=== PATIENT | female | born 1980 | race Caucasian/White ===

== ENCOUNTER 2019-01-11 08:39 | Inpatient (IN) | payer MEDICAID ==
[~2019-01-11] VITALS: Ht 165.1 cm; Wt 88.6 kg
[~2019-01-11 08:39] MED LIST: FERR27TA; PREN1TAB49
[2019-01-11 08:59] VITALS: Ht 165.1 cm; Wt 88.6 kg
[2019-01-11 09:00] VITALS: BP 125/83
[2019-01-11] MEDS ORDERED: LIDOCAINE 1% (MPF) 30 ML INJ INJ PRN (10:00)
[2019-01-11] MEDS ORDERED: OXYTOCIN 30 UNITS/LR 500 ML IV PRN ×2 (10:00→21:00)
[2019-01-11] MEDS ORDERED: CARBOPROST 250 MCG INJ IM PRN ×2 (10:00→21:00)
[2019-01-11] MEDS ORDERED: BUTORPHANOL 2 MG INJ IV PRN (10:00)
[2019-01-11] MEDS ORDERED: AMPICILLIN 2 GM/NS (PMX) 100 ML IV ONE (10:00)
[2019-01-11] MEDS ORDERED: METHYLERGONOVINE 0.2 MG INJ IM PRN ×2 (10:00→21:00)
[2019-01-11] MEDS ORDERED: OXYTOCIN 30 UNITS/LR 500 ML IV SCH ×4 (10:00→20:54)
[2019-01-11] MEDS ORDERED: MISOPROSTOL 200 MCG TAB PR PRN ×2 (10:00→21:00)
[2019-01-11] MEDS: LACTATED RINGER'S 1,000 ML IV SCH ×3 (10:15→17:49)
[2019-01-11] MEDS ORDERED: AMPICILLIN 1 GM/NS (PMX) 50 ML IV SCH (14:00)
[2019-01-11] MEDS ORDERED: FENTAnyl 2MCG/ML-ROPIV 0.2% 100 ML BAG EPI SCH (17:30)
[2019-01-11] MEDS ORDERED: DIPHENHYDRAMINE 50 MG INJ IV PRN (17:30)
[2019-01-11] MEDS ORDERED: NALOXONE (0.4 MG/ML) INJ IV PRN (17:30)
[2019-01-11] MEDS ORDERED: ONDANSETRON 4 MG INJ IV PRN ×2 (17:30→21:00)
[2019-01-11] MEDS: LACTATED RINGER'S 1,000 ML IV* SCH (20:54)
[2019-01-11] MEDS ORDERED: MAGNESIUM HYDROXIDE 30ML CUP PO PRN (21:00)
[2019-01-11] MEDS ORDERED: WITCH HAZEL/GLYCERIN PAD PR PRN (21:00)
[2019-01-11] MEDS ORDERED: ZOLPIDEM 5 MG TAB PO PRN (21:00)
[2019-01-11] MEDS ORDERED: NA PHOSPHATE/BIPHOS 133 ML ENEMA PR PRN (21:00)
[2019-01-11] MEDS ORDERED: HYDROCODONE/APAP (5/325) TAB PO PRN (21:00)
[2019-01-11] MEDS ORDERED: LANOLIN HPA 1 PKT TOP PRN (21:00)
[2019-01-11] MEDS ORDERED: DIPHENHYDRAMINE 25 MG CAP PO PRN (21:00)
[2019-01-11] MEDS ORDERED: BENZOCAINE 20% 56 ML SPRAY TOP PRN (21:00)
[2019-01-11] MEDS ORDERED: METHYLERGONOVINE 0.2 MG TAB PO PRN (21:00)
[2019-01-11 21:50] VITALS: BP 111/58; PULSE 63; RESP 18
[2019-01-11] MEDS: SENNA/DOCUSATE NA (8.6MG/50MG) TAB PO SCH (23:27)
[2019-01-11] MEDS: IBUPROFEN 800 MG TAB PO PRN (23:27)
[2019-01-12 03:30] VITALS: BP 111/60; PULSE 63; RESP 18
[2019-01-12] MEDS: HYDROCODONE/APAP (5/325) TAB PO PRN ×2 (03:32→22:20)
[2019-01-12] MEDS: LACTATED RINGER'S 1,000 ML IV* SCH ×3 (04:54→20:54)
[2019-01-12] MEDS: IBUPROFEN 800 MG TAB PO PRN (05:35)
[2019-01-12 08:00] VITALS: BP 107/57; PULSE 56; RESP 18
[2019-01-12] MEDS: SENNA/DOCUSATE NA (8.6MG/50MG) TAB PO SCH ×2 (10:26→21:00)
[2019-01-12] MEDS ORDERED: MAGNESIUM HYDROXIDE 30ML CUP PO ONE (12:30)
[2019-01-12 16:00] VITALS: BP 107/55; PULSE 60; RESP 18
[2019-01-12] MEDS ORDERED: BISACODYL 10 MG SUPP PR ONE (16:00)
[2019-01-12 20:35] VITALS: BP 116/55; PULSE 64; RESP 18
[2019-01-13 04:00] VITALS: BP 111/60; PULSE 60; RESP 17
[2019-01-13] MEDS: IBUPROFEN 800 MG TAB PO PRN (05:30)
[2019-01-13] MEDS ORDERED: BISACODYL 10 MG SUPP PR ONE (06:00)
[2019-01-13] MEDS ORDERED: MAGNESIUM HYDROXIDE 30ML CUP PO ONE (06:00)
[2019-01-13 08:00] VITALS: BP 109/53; PULSE 59; RESP 18
[2019-01-13] MEDS ORDERED: MEASLES,MUMPS,RUBELLA VACCINE INJ SC* ONE (09:00)
[2019-01-13] MEDS ORDERED: VARICELLA VACCINE LIVE/PF 1,350 UNIT/0.5 ML ML SC* ONE (09:00)
[2019-01-13] MEDS ORDERED: DIPHTH/TET/ACEL PERTUSS (ADULT) 0.5 ML VIAL IM* ONE (09:00)
[2019-01-13] MEDS: HYDROCODONE/APAP (5/325) TAB PO PRN (11:10)
[2019-01-13] MEDS: SENNA/DOCUSATE NA (8.6MG/50MG) TAB PO SCH (11:11)
== END 2019-01-13 16:39 | disposition home or self-care (01) | DRG 807 ==
LOC: OBT 08:39 → L-D 08:40 → OBT 08:45 → L-D 08:45 → PP1 21:36
PROVIDERS: ADMIT Obstetrics & Gynecology; ATTEND Obstetrics & Gynecology
PROC: 10E0XZZ Delivery of Products of Conception, External Approach (ICD-10-PCS; principal; 2019-01-11)
DX: O80 Encounter for full-term uncomplicated delivery (principal); Z37.0 Single live birth; Z3A.38 38 weeks gestation of pregnancy
CPT/HCPCS: 36415; 36600; 62322; 76815; 76818; 82803; 85025; 85610; 85730; 86592; 86850; 86870; 86900; 86901; 88307; 90716; 99464; G0463; J2590; J3010; J7120